=== PATIENT | male | born 2000 ===

== ENCOUNTER → 2024-11-05 | Outpatient (CLI) | payer OTHER, SELFPAY ==
--- NOTE | 2024-11-05 08:05 | DI.ECHO.S_ITS ---
[facility]+ [facility] : : [address] : : [place] : : [id number] : : Phone: [phone] Echocardiogram Report + + :Name: ERIC WILSON Study Date: 11/05/2024 Height: 70 in : :Hospital ReadingLocation: Weight: 190 lb : : Gender: Male BSA: 2.0 m2 : :: 2000 Age: 24 yrs BP: 122/78 mmHg: :Reason For Study: CHEST PAIN : :Ordering Physician: ERNIE, : :SHERMAN Performed By: Johan Christianson : :Referring: UNSPECIFIED : + + Interpretation Summary 1) Normal left ventricular thickness and size with low normal systolic function (EF 50-55%). 2) Normal right ventricular size and function. 3) No significant valvular abnormalities. 4) No prior Echo available for comparison. Procedure: A two-dimensional transthoracic echocardiogram with color flow and Doppler was performed. The study quality was technically good. There is no prior echocardiogram noted for this patient. The patient was in normal sinus rhythm during the exam. Left Ventricle: The left ventricle is normal in size. There is normal left ventricular wall thickness. There is no ventricular septal defect visualized. The ejection fraction is estimated to be 50-55%. There are no focal wall motion abnormalities. Diastolic parameters suggest probable normal left ventricular diastolic function and normal filling pressures. Right Ventricle: The right ventricle is normal in size and function. Atria: The left atrial size is normal. Right atrial size is normal. There is no Doppler evidence for an interatrial shunt. Mitral Valve: The mitral valve leaflets appear normal. There is no evidence of stenosis, fluttering, or prolapse. There is trace mitral regurgitation. Aortic Valve: The aortic valve is trileaflet. The aortic valve opens well. There is no aortic valve stenosis. No aortic regurgitation is present. Tricuspid Valve: The tricuspid valve leaflets are thin and pliable. There is trace tricuspid regurgitation. Pulmonary artery pressures cannot be estimated because of the lack of a measurable TR jet velocity. Pulmonic Valve: The pulmonic valve leaflets are thin and pliable; valve motion is normal. There is trace pulmonic regurgitation. Great Vessels: The aortic root is normal size. The dimensions of the ascending aorta are normal. The pulmonary artery is normal size. The inferior vena cava was not visualized. Pericardium/ Pleura There is no pericardial effusion. MMode/2D Measurements & Calculations LVIDd: 5.2 cm LVOT diam: 2.4 cm LVIDs: 3.5 cm Ao root diam: 3.0 cm FS: 31.6 % asc Aorta Diam: 2.6 cm EPSS: 0.66 cm Ao Arch Diam (Prox Trans): 1.6 cm IVSd: 0.89 cm LVPWd: 0.92 cm LV blas. diameter/BSA (cm/m^2): 2.5 LV sys. diameter/BSA (cm/m^2): 1.7 LA A2 area: 14.0 cm2 RA long axis: 4.4 cm LA A4 area: 17.1 cm2 RA area: 14.3 cm2 LA length (vol): 5.2 cm RA vol: 39.1 ml LA vol: 39.0 ml RA : 19.2 ml/m2 LA vol index: 19.1 ml/m2 RVD1 (basal): 3.2 cm RVD2 (mid): 2.9 cm TAPSE: 2.2 cm Doppler Measurements & Calculations Ao V2 max: 90.7 cm/sec LVOT Max Dandre: 71.5 cm/sec Ao V2 mean: 61.6 cm/sec LV V1 max P.0 mmHg Ao max P.3 mmHg LV V1 VTI: 16.0 cm Ao mean P.7 mmHg JONAS(I,D): 3.6 cm2 Ao V2 VTI: 19.7 cm JONAS(V,D): 3.5 cm2 sev ratio: 0.81 JONAS indexed to BSA (cm^2/m^2): 1.8 MV E max dandre: 69.6 cm/sec TR max dandre: 232.3 cm/sec MV A max dandre: 45.7 cm/sec TR max P.6 mmHg MV E/A: 1.5 PA V2 max: 75.5 cm/sec Med Peak E' Dandre: 12.2 cm/sec PA V2 mean: 53.7 cm/sec E/E' med: 5.7 PA mean P.3 mmHg Lat Peak E' Dandre: 14.4 cm/sec PA pr(Accel): 8.8 mmHg E/E' lat: 4.8 E/e' average: 5.3 MV dec time: 0.21 sec SV([facility]): 70.5 ml Reading Physician:12:03 PM
== END ==
LOC: ECHO 07:59
PROVIDERS: Referring Provider Physician Assistant; Visit Provider Physician Assistant
DX: Z00.00 Encounter for general adult medical examination without abnormal findings (principal)
CPT/HCPCS: 93306